=== PATIENT | female | born 1965 | race Caucasian/White ===

== ENCOUNTER 2017-07-28 15:22 | Emergency (ER) | payer OTHER ==
[~2017-07-28] VITALS: Ht 162.6 cm; Wt 97.0 kg
[~2017-07-28 15:22] MED LIST: ALBU18HF INH; CHOL10002 PO; LEVO150T PO; LEVO175T2 PO; LEVO5TAB29 PO; MONT10TA6 PO; MULT1CAP19 PO; PANT40TA3 PO
[2017-07-28 17:05] LABS: HEMATOCRIT 42.3 % (34.6-47.8); HEMOGLOBIN 14.2 g/dL (11.7-16.4); WHITE BLOOD COUNT 6.9 x10^3/uL (3.4-10)
[2017-07-28 17:17] LABS: BLOOD UREA NITROGEN 8 mg/dL (7-18)
[2017-07-28 20:25] VITALS: BP 112/70
== END 2017-07-28 20:27 | disposition home or self-care (01) ==
LOC: ED 19:52
DX: E03.9 Hypothyroidism, unspecified (principal); G43.909 Migraine, unspecified, not intractable, without status migrainosus; Z90.49 Acquired absence of other specified parts of digestive tract
CPT/HCPCS: 36415; 71020; 80048; 82040; 84439; 84443; 85025; 99285